=== PATIENT | male | born 1930 | race Two or more races ===

== ENCOUNTER 2017-05-02 21:45 | Inpatient (IN) | payer MEDICAID, MEDICARE ==
[~2017-05-02] VITALS: Ht 160 cm; Wt 82.6 kg
--- NOTE | 2017-05-02 22:03 | NUR ---
BIB BY PARAMEDICS FROM HOME, S/P SEIZURE ACTIVITY FOR 15MIN, NOW IN POSTICTAL STATE, RESPONDS TO PAIN STIMULI ONLY, SB, SR, ON THE MONITOR, ON 3L 02 SAT WELL, BP STABLE, NO PAIN, LAC #20, BLOOD DRAWN, AWATING FOR MD TO SEE THE PT.
--- NOTE | 2017-05-02 22:19 | NUR ---
PT BACK FROM CT SCAN.
--- NOTE | 2017-05-02 22:20 | NUR ---
LAB AT THE BEDSIDE FOR BLD CXR DRAW.
--- NOTE | 2017-05-02 22:25 | NUR ---
PT NOTED WITH SEIZURE LASTING [address] GIBSON MADE AWARE. PT PLACED ON NON REBREATHER MASK PER
[2017-05-02 22:32] LABS: BASOPHILS % (AUTO) 0.4 % (0.0-2.0); EOSINOPHILS # (AUTO) 0.1 /CMM (0.0-0.7); EOSINOPHILS % (AUTO) 1.1 % (0.0-6.0); HEMATOCRIT 39 % (39-51); LYMPHOCYTES # (AUTO) 1.7 /CMM (0.8-4.8); LYMPHOCYTES % (AUTO) 30.1 % (20.0-44.0); MEAN CORPUSCULAR HEMOGLOBIN 32 PG (26.0-33.0); MEAN CORPUSCULAR HGB CONC 33 g/dl (31.0-36.0); MEAN CORPUSCULAR VOLUME 97 fL (80-96); MONOCYTES # (AUTO) 0.6 /CMM (0.1-1.30); MONOCYTES % (AUTO) 10.6 % (2.0-12.0); NEUTROPHILS # (AUTO) 3.3 /CMM (1.8-8.9); NEUTROPHILS % (AUTO) 57.8 % (43.0-81.0); PLATELET COUNT (AUTO) 138 /CMM (150-450); RDW COEFFICIENT OF VARIATION 13.6 (11.5-15.0); RED BLOOD CELL COUNT(AUTO) 4.04 MIL/uL (4.5-6.0); WHITE BLOOD COUNT (AUTO) 5.8 K/uL (4.3-11.0)
[2017-05-02 22:41] LABS: CALCIUM, SERUM 8.4 mg/dL (8.5-10.1); CARBON DIOXIDE 27 mmol/L (21-32); CHLORIDE 107 mmol/L (98-107); CREATININE 1.2 mg/dL (0.6-1.3); GLUCOSE 141 mg/dL (74-106); POTASSIUM 3.8 mmol/L (3.5-5.1); SODIUM SERUM 144 mmol/L (136-145); UREA NITROGEN, BLOOD 13 mg/dL (7-18)
[2017-05-02 22:45] LABS: INR 1.07 (0.87-1.13); PROTHROMBIN TIME 11.5 SECS (9.5-12.7)
[2017-05-02 22:47] LABS: ALANINE AMINOTRANSFERASE 15 U/L (12-78); ALBUMIN 3.2 g/dL (3.4-5.0); ALCOHOL, BLOOD < 3 mg/dL (0-0); ALKALINE PHOSPHATASE 129 U/L (46-116); ASPARTATE AMINOTRANSFERASE 14 U/L (15-37); BILIRUBIN,DIRECT 0.2 mg/dL (0.0-0.2); BILIRUBIN,TOTAL 0.6 mg/dL (0.2-1.0); TOTAL PROTEIN, SERUM 6.7 g/dL (6.4-8.2)
--- NOTE | 2017-05-02 23:04 | NUR ---
PT ASSIGNED TO [facility] 327-2
[2017-05-02 23:22] LABS: APPEARANCE,URINE CLEAR (CLEAR); BILIRUBIN,URINE NEGATIVE (NEGATIVE); BLOOD, URINE NEGATIVE Ery/uL (NEGATIVE); COLOR,URINE YELLOW (YELLOW); KETONES,URINE NEGATIVE (NEGATIVE); LEUKOCYTE ESTERASE ,URINE NEGATIVE (NEGATIVE); NITRITE, URINE NEGATIVE (NEGATIVE); PH,URINE 7.5 (5.0-8.0); PROTEIN,URINE NEGATIVE (NEGATIVE); UGLUCOSE NEGATIVE (NEGATIVE)
[2017-05-02] MEDS ORDERED: LEVETIRACETAM (500MG) 250 MG in IV NS 0.9% 100 ML IV SCH (23:30)
[2017-05-02 23:40] LABS: RBC,URINE NONE SEEN /HPF (0-2)
[2017-05-02 23:41] LABS: BACTERIA,URINE None seen /HPF (None Seen); SQUAMOUS EPITHELIAL CELL,UR Rare /HPF (None Seen); WBC,URINE 0-1 /HPF (0-3)
[2017-05-02] MEDS ORDERED: LEVETIRACETAM (500MG) 500 MG/5 ML VIAL IV ONE (23:42)
[2017-05-02] MEDS ORDERED: ISOS30TA6 PO (23:56)
[2017-05-02] MEDS ORDERED: ASPI-991 PO (23:56)
[2017-05-02] MEDS ORDERED: SILO8CAP PO (23:56)
[2017-05-02] MEDS ORDERED: ATOR20TA PO (23:56)
[2017-05-02] MEDS ORDERED: RANO10003 PO (23:56)
[2017-05-02] MEDS ORDERED: MEMA14CA PO (23:56)
[2017-05-02] MEDS ORDERED: NITR0.4T SL (23:56)
[2017-05-02] MEDS ORDERED: FAMO20TA8 PO (23:56)
[2017-05-02] MEDS ORDERED: CLOP75TA2 PO (23:56)
[2017-05-02] MEDS ORDERED: BENA20TA2 PO (23:56)
--- NOTE | 2017-05-03 00:12 | NUR ---
PT IS TRANSFERRING TO [facility] BED 327-2, REPORT GIVEN TO DAVID.
[2017-05-03 00:19] VITALS: BP 152/70
[2017-05-03] MEDS ORDERED: IV NS 0.9% 1,000 ML IV PRN ×2 (00:19→01:00)
[2017-05-03] MEDS ORDERED: LORAZEPAM INJ 2 MG/ML VIAL IV PRN (00:30)
[2017-05-03] MEDS ORDERED: MAGNESIUM HYDROXIDE 30 ML UDC PO PRN (00:30)
[2017-05-03] MEDS ORDERED: NITROGLYCERIN 0.4 MG/TAB BOTTLE SL PRN (00:30)
[2017-05-03] MEDS ORDERED: ONDANSETRON HCL/PF 4 MG/2 ML VIAL IVP PRN (00:30)
[2017-05-03] MEDS ORDERED: HYDROCODONE/APAP 5/325MG 1 EACH TABLET PO PRN (00:30)
[2017-05-03] MEDS ORDERED: MAG HYDROX/AL HYDROX/SIMETH 30 ML UDC PO PRN (00:30)
[2017-05-03] MEDS ORDERED: LEVETIRACETAM (500MG) 500 MG in IV NS 0.9% 100 ML IV SCH (00:30)
[2017-05-03] MEDS ORDERED: ACETAMINOPHEN 325 MG TABLET PO PRN (00:30)
[2017-05-03] MEDS ORDERED: Z GUARD REMEDY 2 OZ OINT TP PRN (00:30)
--- NOTE | 2017-05-03 00:30 | NUR ---
RETREAD SUPERVISOR NOTES PLACED A CALL TO M.Dany PRECISION THREAD GRINDER OPERATOR FOR THIS PT SPOKE TO SHANTE MARRERO RELAYED PT'S LACTIC ACID RESULTS OF 2.6 PER DOCTOR SHE IS ALREADY AWARE OF IT AND SHE ORDERED ALREADY WHAT IS NECESSARY TO THE PATIENT ACCORDING TO HER PATIENT IS NOT SEPTIC AT THIS TIME. NO NEED FOR SEPSIS ASSESSMENT
[2017-05-03] MEDS: IV NS 0.9% 1,000 ML IV PRN ×2 (01:22→09:21)
--- NOTE | 2017-05-03 02:54 | NUR ---
RN OPENING TELE NOTES RECEIVED PT VIA KULDEEP FROM [place] AT 0019 VIA ACLS PROTOCOL HEAD TO TOE ASSESSMENT IS DONE, A/O X 1, PT PUT ON NC 2LPM VIA NC 02 SAT AT 98%, PATIENT NOT IN ACUTE DISTRESS AT THIS TIME, IV SITE IN LAC #20 INTACT NO S/S OF INFILTRATION. CALL LIGHT WITHIN REACH. SAFETY MEASURES IN PLACE, ON LOW BED, WILL CONTINUE TO MONITOR PT.
--- NOTE | 2017-05-03 03:35 | NUR ---
FIRM ADMINISTRATOR NOTES PATIENTS LACTIC ACID IS NOW 1.3
[2017-05-03 04:00] VITALS: BP 150/70
[2017-05-03 04:38] VITALS: BP 150/70
--- NOTE | 2017-05-03 05:10 | NUR ---
SHEET ROCK SANDER NOTES NS IV FLUIDS 1000 L WAS GIVEN BOLUS X 1 ONLY PER M.D ORDER CLARIFIED NOTED AND CARRIED OUT
--- NOTE | 2017-05-03 06:37 | NUR ---
MS RN CLOSING NOTES PATIENT COMFORTABLY ASLEEP AND EASILY AWAKEN, A/O X 1, HEAD OF BED ELEVATED FOR BETTER LUNG EXPANSION.2LPM NC 02 SAT 98% IV FLUIDS NS RUNNING AT 150 CC/HR TOLERATED WELL. IV SITE NO S/S OF INFILTRATED PATENT AND FLUSHED, NOT IN ACUTE DISTRESS. RESPIRATIONS EVEN AND UNLABORED, FREQUENT VISUAL CHECK DONE FOR SAFETY EVERY 2 HOURS. NURSING CARE RENDERED, NEEDS ATTENDED AND ANTICIPATED, NO SEIZURE NOTED, KEPT CLEAN AND DRY AND COMFORTABLE, GOOD SKIN CARE PROVIDED. OFFLOAD AT ALL TIMES. SAFE HAZARD FREE ENVIRONMENT PROVIDED. CALL LIGHT WITHIN EASY TO REACH, ON LOW BED AT ALL TIMES TO ENSURE SAFETY, WILL ENDORSE TO THE NEXT SHIFT CONTINUE PLAN OF CARE. ASSITED REPOSITION PATIENT EVERY 2 HOURS FOR SKIN MGT.
[2017-05-03 06:55] VITALS: BP 148/70
[2017-05-03] MEDS ORDERED: PANTOPRAZOLE 40 MG TABLET.DR PO SCH (07:30)
--- NOTE | 2017-05-03 07:53 | NUR ---
RN NOTES PATIENT RECEIVED LYING DOWN ,ASLEEP, HOB ELEVATED, NO SOB OR DISTRESS NOTED. PATIENT ON O2 VIA NC AT 2 LPM AND TOLERATED WELL. ON TELE MONITOR SB 51 PT. A/O X 1. IV INTACT AND PATENT. KEPT PATIENT CLEAN AND COMFORTABLE IN BED, CALL LIGHT WITHIN PATIENT REACH. WILL CONTINUE TO MONITOR TO ACCORDINGLY.
[2017-05-03] MEDS: ISOSORBIDE MONONITRATE (30MG) 30 MG TAB.SR.24H PO SCH (09:18)
[2017-05-03] MEDS: ASPIRIN EC 81 MG TABLET.DR PO SCH (09:18)
[2017-05-03] MEDS: CLOPIDOGREL BISULFATE 75 MG TABLET PO SCH (09:19)
[2017-05-03] MEDS: FAMOTIDINE (20 MG) 20 MG TABLET PO SCH (09:19)
[2017-05-03] MEDS: ATORVASTATIN 10 MG TABLET PO SCH (09:19)
[2017-05-03] MEDS: BENAZEPRIL HCL 20 MG TABLET PO SCH ×2 (09:19→16:37)
[2017-05-03] MEDS: LEVETIRACETAM (500MG) 500 MG in IV NS 0.9% 100 ML IV SCH ×2 (09:20→20:50)
[2017-05-03 09:34] LABS: MAGNESIUM 1.8 mg/dL (1.8-2.4); PHOSPHORUS 2.8 mg/dL (2.5-4.9)
[2017-05-03 09:58] LABS: BASOPHILS % (AUTO) 0.3 % (0.0-2.0); EOSINOPHILS % (AUTO) 0.7 % (0.0-6.0); HEMATOCRIT 37 % (39-51); HEMOGLOBIN 12.4 g/dL (13.5-17.5); LYMPHOCYTES # (AUTO) 1.5 /CMM (0.8-4.8); LYMPHOCYTES % (AUTO) 23.4 % (20.0-44.0); MEAN CORPUSCULAR HEMOGLOBIN 32 PG (26.0-33.0); MEAN CORPUSCULAR HGB CONC 33 g/dl (31.0-36.0); MEAN CORPUSCULAR VOLUME 98 fL (80-96); MONOCYTES # (AUTO) 0.6 /CMM (0.1-1.30); NEUTROPHILS # (AUTO) 4.1 /CMM (1.8-8.9); NEUTROPHILS % (AUTO) 65.6 % (43.0-81.0); PLATELET COUNT (AUTO) 132 /CMM (150-450); RDW COEFFICIENT OF VARIATION 13.6 (11.5-15.0); RED BLOOD CELL COUNT(AUTO) 3.82 MIL/uL (4.5-6.0); WHITE BLOOD COUNT (AUTO) 6.3 K/uL (4.3-11.0)
[2017-05-03 10:02] LABS: CALCIUM, SERUM 7.9 mg/dL (8.5-10.1); CARBON DIOXIDE 25 mmol/L (21-32); CHLORIDE 111 mmol/L (98-107); CREATININE 0.9 mg/dL (0.6-1.3); GLUCOSE 85 mg/dL (74-106); POTASSIUM 3.8 mmol/L (3.5-5.1); SODIUM SERUM 146 mmol/L (136-145); UREA NITROGEN, BLOOD 13 mg/dL (7-18)
[2017-05-03 10:23] LABS: THYROID STIMULATING HORMONE 0.704 uIU/mL (0.358-3.74)
--- NOTE | 2017-05-03 12:20 | NUR ---
RN NOTES FAMILY BROUGHT HOME MEDICATIONS RANEXA AND NAMENDA.
--- NOTE | 2017-05-03 12:52 | NUR ---
WOUND CARE CONSULT: PT NOTED TO HAVE UNEVEN SKIN PIGMENTATION. SKIN IS INTACT. PT ABLE TO ASSIST WITH TURNING AND REPOSITIONING IN BED. ALL SKIN PROTECTION MEASURES IN PLACE AND DISCUSSED WITH NURSING STAFF. JHONY SCORE CURRENTLY 13. PT ON COMFORT GEL MATTRESS. WILL SEE PRN. SÁNCHEZ IN AGREEMENT WITH PLAN OF CARE.
--- NOTE | 2017-05-03 15:25 | NUR ---
RN NOTES PATIENT IS LYING DOWN WITH NO SOB OR DISTRESS NOTED.
[2017-05-03] MEDS: IV 1/2NS 1000 ML 1,000 ML IV PRN (15:27)
[2017-05-03] MEDS: HOME MED - RANEXA 1000MG PO SCH (16:37)
--- NOTE | 2017-05-03 18:11 | NUR ---
Spoke with Madelyn @ [facility]- [phone], patient is accepted and bed is available. Addendum: 05/03/17 at 1811 by PHILIP IRWIN RN Amended: Links added.
--- NOTE | 2017-05-03 18:42 | NUR ---
RN NOTES ALL NEEDS PROVIDED, ATTENDED, AND ANTICIPATED. KEPT PATIENT CLEAN AND COMFORTABLE IN BED. CALL LIGHT WITHIN PATIENT REACH, WILL CONTINUE TO MONITOR ACCORDINGLY. ENDORSED TO NEXT SHIFT RN TO CONTINUE CARE.
[2017-05-03 20:00] VITALS: BP 98/43
--- NOTE | 2017-05-03 20:00 | NUR ---
RN NOTES RECEIVED PATIENT IN BED, ALERT AND ORIENTED X1, CONFUSED, UNABLE TO ENGAGE IN MEANINGFUL CONVERSATION, HX OF DEMENTIA, NO SOB, NO RESPIRATORY DISTRESS, 2 LPM VIA NC, SPO2 95%, NOT IN APPARENT PAIN, LEFT AC PERIPHERAL LINE IS PATENT AND INFUSING WELL, ON SEIZURE PRECAUTION, REPOSITIONED FOR COMFORT, CALL LIGHT WITHIN REACH.
[2017-05-04] MEDS: IV 1/2NS 1000 ML 1,000 ML IV PRN (03:23)
--- NOTE | 2017-05-04 06:43 | NUR ---
RN NOTES PATIENT ASLEEP, EASILY AROUSEABLE BY VOICE AND TOUCH, NO DISTRESS, NO SOB, TOLERATING 2LPM VIA NC, NO COMPLAIN OF PAIN, NO RESTLESSNESS, NO FACIAL GRIMACING, NO SEIZURE NOTED DURING SHIFT, NEEDS ATTENDED, CALL LIGHT WITHIN REACH
--- NOTE | 2017-05-04 07:38 | NUR ---
RN NOTES PATIENT RECEIVED LYING DOWN ,ASLEEP, HOB ELEVATED, NO SOB OR DISTRESS NOTED. PATIENT ON O2 VIA NC AT 2 LPM AND TOLERATED WELL. PT. A/O X 1. IV INTACT AND PATENT. KEPT PATIENT CLEAN AND COMFORTABLE IN BED, CALL LIGHT WITHIN PATIENT REACH. WILL CONTINUE TO MONITOR TO ACCORDINGLY.
[2017-05-04 07:45] LABS: EOSINOPHILS # (AUTO) 0.1 /CMM (0.0-0.7); EOSINOPHILS % (AUTO) 0.9 % (0.0-6.0); HEMATOCRIT 35 % (39-51); HEMOGLOBIN 11.9 g/dL (13.5-17.5); LYMPHOCYTES # (AUTO) 1.2 /CMM (0.8-4.8); LYMPHOCYTES % (AUTO) 12.1 % (20.0-44.0); MEAN CORPUSCULAR HEMOGLOBIN 33 PG (26.0-33.0); MEAN CORPUSCULAR HGB CONC 34 g/dl (31.0-36.0); MEAN CORPUSCULAR VOLUME 98 fL (80-96); MONOCYTES # (AUTO) 0.6 /CMM (0.1-1.30); MONOCYTES % (AUTO) 6.2 % (2.0-12.0); NEUTROPHILS # (AUTO) 7.8 /CMM (1.8-8.9); NEUTROPHILS % (AUTO) 80.8 % (43.0-81.0); PLATELET COUNT (AUTO) 128 /CMM (150-450); RDW COEFFICIENT OF VARIATION 13.7 (11.5-15.0); RED BLOOD CELL COUNT(AUTO) 3.62 MIL/uL (4.5-6.0); WHITE BLOOD COUNT (AUTO) 9.7 K/uL (4.3-11.0)
[2017-05-04 07:58] LABS: CHOLESTEROL 105 mg/dL (<200); HDL CHOLESTEROL 30 mg/dL (40-60); LDL 49 mg/dL (0-99); TRIGLYCERIDES 140 mg/dL (30-150)
[2017-05-04 08:00] VITALS: BP 129/98
[2017-05-04 08:10] LABS: CALCIUM, SERUM 7.9 mg/dL (8.5-10.1); CARBON DIOXIDE 27 mmol/L (21-32); CHLORIDE 110 mmol/L (98-107); CREATININE 0.9 mg/dL (0.6-1.3); GLUCOSE 93 mg/dL (74-106); MAGNESIUM 1.6 mg/dL (1.8-2.4); PHOSPHORUS 3.6 mg/dL (2.5-4.9); POTASSIUM 4.2 mmol/L (3.5-5.1); SODIUM SERUM 145 mmol/L (136-145); UREA NITROGEN, BLOOD 11 mg/dL (7-18)
[2017-05-04] MEDS: HOME MED - RANEXA 1000MG PO SCH ×2 (09:04→16:35)
[2017-05-04] MEDS: LEVETIRACETAM (500MG) 500 MG in IV NS 0.9% 100 ML IV SCH ×2 (09:04→20:32)
[2017-05-04] MEDS: FAMOTIDINE (20 MG) 20 MG TABLET PO SCH (09:05)
[2017-05-04] MEDS: MEMANTINE 14 MG PO SCH (09:05)
[2017-05-04] MEDS: ASPIRIN EC 81 MG TABLET.DR PO SCH (09:06)
[2017-05-04] MEDS: BENAZEPRIL HCL 20 MG TABLET PO SCH ×2 (09:06→16:35)
[2017-05-04] MEDS: ATORVASTATIN 10 MG TABLET PO SCH (09:06)
[2017-05-04] MEDS: ISOSORBIDE MONONITRATE (30MG) 30 MG TAB.SR.24H PO SCH (09:06)
[2017-05-04] MEDS: CLOPIDOGREL BISULFATE 75 MG TABLET PO SCH (09:06)
[2017-05-04] MEDS: Magnesium 1GM/D5W 100ML PREMIX 100 ML IV SCH ×2 (10:00→11:14)
[2017-05-04 16:00] VITALS: BP 140/62
--- NOTE | 2017-05-04 19:30 | NUR ---
MS RN INITIAL NOTE RECEIVED PT AWAKE AND ALERT, ORIENTED X1, BENINESE SPEAKING, CONFUSED AND ATTEMPTING TO GET OFF HIS BED, WILL KEEP CLOSE MONITORING FOR SAFETY, NO SIGNS OF PAIN OR RESPIRATORY DISTRESS NOTED DURING PHYSICAL ASSESSMENT, SAFETY MEASURES WILL BE MAINTAINED AT ALL TIMES, NEEDS WILL BE ANTICIPATED AND ATTENDED TO PROMPTLY.
[2017-05-04 20:00] VITALS: BP 133/67
--- NOTE | 2017-05-04 20:30 | NUR ---
PER PHONE CONVERSATION WITH DR FREY,IT IS OK TO GIVE ATIVAN 1MG IV FOR AGITATION WELL, WILL CARRYOUT ORDER AND CONTINUE TO MONITOR CLOSELY.
[2017-05-05] MEDS: IV 1/2NS 1000 ML 1,000 ML IV PRN (04:52)
--- NOTE | 2017-05-05 06:23 | NUR ---
MS RN CLOSING NOTE PT REMAINED STABLE DURING NEON TUBE PUMPER, NO CHANGE OF CONDITION NOTED, WILL ENDORSE TO INCOMING NURSE FOR ZITA.
--- NOTE | 2017-05-05 07:25 | NUR ---
RN NOTES RECEIVED PATIENT ASLEEP, AROUSES EASILY. ALERT AND ORIENTED X1, SAMOAN SPEAKING, CONFUSED. SITTER ON BEDSIDE FOR SAFETY. NO ACUTE DISTRESS, NO SOB NOTED. IV SITE INTACT AND PATENT. SAFETY MEASURES WILL BE MAINTAINED AT ALL TIMES, NEEDS WILL BE ANTICIPATED AND ATTENDED TO PROMPTLY. BED IN LOW POSITION, LOCKED, CALL LIGHT IN REACH. WILL CONTINUE TO MONITOR ACCORDINGLY.
[2017-05-05 08:00] VITALS: BP_SYST 124; BP_SYST 129; BP_DIAS 56; BP_DIAS 59
[2017-05-05 08:08] LABS: CALCIUM, SERUM 7.5 mg/dL (8.5-10.1); CARBON DIOXIDE 26 mmol/L (21-32); CHLORIDE 106 mmol/L (98-107); CREATININE 0.9 mg/dL (0.6-1.3); GLUCOSE 97 mg/dL (74-106); MAGNESIUM 1.8 mg/dL (1.8-2.4); POTASSIUM 3.6 mmol/L (3.5-5.1); SODIUM SERUM 141 mmol/L (136-145); UREA NITROGEN, BLOOD 10 mg/dL (7-18)
[2017-05-05] MEDS: LEVETIRACETAM (500MG) 500 MG in IV NS 0.9% 100 ML IV SCH (09:28)
[2017-05-05] MEDS: FAMOTIDINE (20 MG) 20 MG TABLET PO SCH (09:33)
[2017-05-05] MEDS: ASPIRIN EC 81 MG TABLET.DR PO SCH (09:33)
[2017-05-05] MEDS: CLOPIDOGREL BISULFATE 75 MG TABLET PO SCH (09:33)
[2017-05-05] MEDS: BENAZEPRIL HCL 20 MG TABLET PO SCH ×2 (09:37→17:00)
[2017-05-05] MEDS: ISOSORBIDE MONONITRATE (30MG) 30 MG TAB.SR.24H PO SCH (09:37)
[2017-05-05] MEDS: HOME MED - RANEXA 1000MG PO SCH ×2 (09:56→17:17)
[2017-05-05] MEDS: MEMANTINE 14 MG PO SCH (09:56)
[2017-05-05 16:00] VITALS: BP 139/59
[2017-05-05] MEDS ORDERED: LEVE250T2 PO (16:34)
[2017-05-05 17:00] VITALS: BP 89/44
--- NOTE | 2017-05-05 17:00 | NUR ---
RN NOTES PATIENT COMPLAINTS OF CHEST PAIN, BP 115/48. NITRO GIVEN ORDERED. AFTER 5 MINS, PATIENT DENIES PAIN, BP 89/49. SPO2 92-94% ON 4LPM NC. STAT EKG ORDERED. DR GRACY JC AWARE. WILL CONTINUE TO MONITOR ACCORDINGLY.
--- NOTE | 2017-05-05 17:30 | NUR ---
RN NOTES NORMAL EKG RESULT. PATIENT DENIES ANY PAIN OR DISCOMFORT. DR GRACY JC ORDERED TO CONTINUE DISCHARGE. WILL CONTINUE TO MONITOR ACCORDINGLY.
--- NOTE | 2017-05-05 18:20 | NUR ---
RN NOTES DISCHARGE PATIENT IN STABLE CONDITION ACCOMPANIED BY 2 TESTING COORDINATOR, AND FAMILY. DISCHARGE TEACHING/INSTRUCTIONS/EXITCARE DONE. DISCHARGE PAPERWORK GIVEN TO TESTING COORDINATOR. CALLED [facility] AND SPOKE WITH MYRNA LAMB, FOR REPORT.
[2017-05-05] MEDS ORDERED: LEVETIRACETAM (250 MG) 250 MG TABLET PO SCH (21:00)
== END 2017-05-05 18:20 | DRG 53 ==
LOC: ER 21:46 → EDBD 21:46 → TELE 23:16 → MED 05-03 15:03
PROVIDERS: ADMIT Internal Medicine; ATTEND Internal Medicine
DX: G40.409 Other generalized epilepsy and epileptic syndromes, not intractable, without status epilepticus (principal); I21.4 Non-ST elevation (NSTEMI) myocardial infarction; I63.8 Other cerebral infarction; E87.2 Acidosis; I27.2 Other secondary pulmonary hypertension; D69.6 Thrombocytopenia, unspecified; F03.90 Unspecified dementia, unspecified severity, without behavioral disturbance, psychotic disturbance, mood disturbance, and anxiety; Z96.641 Presence of right artificial hip joint; Z95.5 Presence of coronary angioplasty implant and graft; Z87.891 Personal history of nicotine dependence; Z82.49 Family history of ischemic heart disease and other diseases of the circulatory system; N40.0 Benign prostatic hyperplasia without lower urinary tract symptoms; K57.30 Diverticulosis of large intestine without perforation or abscess without bleeding; L80 Vitiligo; K21.9 Gastro-esophageal reflux disease without esophagitis; J43.9 Emphysema, unspecified; J98.11 Atelectasis; J32.9 Chronic sinusitis, unspecified; I70.0 Atherosclerosis of aorta; I25.2 Old myocardial infarction; I25.10 Atherosclerotic heart disease of native coronary artery without angina pectoris; I10 Essential (primary) hypertension; H40.9 Unspecified glaucoma; E78.5 Hyperlipidemia, unspecified; E04.2 Nontoxic multinodular goiter; D64.9 Anemia, unspecified; L53.9 Erythematous condition, unspecified; R73.9 Hyperglycemia, unspecified
CPT/HCPCS: 36415; 70450-TC; 71010-TC; 71250-TC; 80048-TC; 80061-TC; 80076-TC; 80305; 81000-TC; 82962-TC; 83605-TC; 83735-TC; 84100-TC; 84439-TC; 84443-TC; 84484-TC; 85025-TC; 85730-TC; 87040-TC; 92521; 93307-TC; 95819-TC; A4606; G0480; J1953; J2060; J3475; J3490; J7030; Z7610

== ENCOUNTER 2017-10-04 12:43 | Inpatient (IN) | payer MEDICAID, MEDICARE ==
[~2017-10-04] VITALS: Ht 165.1 cm; Wt 67.2 kg
[~2017-10-04 12:43] MED LIST: ASPI-1152 PO; ATOR20TA PO; BENA20TA2 PO; CLOP75TA15 PO; FAMO20TA8 PO; ISOS30TA6 PO; LEVE250T2 PO; MEMA14CA PO; NITR0.4T SL; RANO10003 PO; SILO8CAP PO
--- NOTE | 2017-10-04 12:43 | NUR ---
[id number] FROM SNF: L SIDE CHEST PAIN x 30 MIN ASW SPECIALIST. ASA 162, NITRO 0.8 GIVEN. NAD NOTED. VSS. PT PLACED IN GOWN AND MONITOR. PENDING MD NGUYEN.
[2017-10-04 13:09] LABS: BASOPHILS # (AUTO) 0.1 /CMM (0.0-0.2); BASOPHILS % (AUTO) 0.9 % (0.0-2.0); EOSINOPHILS # (AUTO) 0.3 /CMM (0.0-0.7); EOSINOPHILS % (AUTO) 3.5 % (0.0-6.0); HEMATOCRIT 41 % (39-51); HEMOGLOBIN 13.8 g/dL (13.5-17.5); LYMPHOCYTES # (AUTO) 2.6 /CMM (0.8-4.8); LYMPHOCYTES % (AUTO) 29.4 % (20.0-44.0); MEAN CORPUSCULAR HEMOGLOBIN 30 PG (26.0-33.0); MEAN CORPUSCULAR HGB CONC 34 g/dl (31.0-36.0); MEAN CORPUSCULAR VOLUME 90 fL (80-96); MONOCYTES # (AUTO) 0.5 /CMM (0.1-1.30); NEUTROPHILS # (AUTO) 5.4 /CMM (1.8-8.9); NEUTROPHILS % (AUTO) 60.2 % (43.0-81.0); PLATELET COUNT (AUTO) 324 /CMM (150-450); RDW COEFFICIENT OF VARIATION 13.2 (11.5-15.0); RED BLOOD CELL COUNT(AUTO) 4.54 MIL/uL (4.5-6.0); WHITE BLOOD COUNT (AUTO) 8.9 K/uL (4.3-11.0)
[2017-10-04 13:19] LABS: CALCIUM, SERUM 8.3 mg/dL (8.5-10.1); CARBON DIOXIDE 25 mmol/L (21-32); CHLORIDE 104 mmol/L (98-107); CREATININE 1.1 mg/dL (0.6-1.3); GLUCOSE 103 mg/dL (74-106); POTASSIUM 4.3 mmol/L (3.5-5.1); SODIUM SERUM 137 mmol/L (136-145); UREA NITROGEN, BLOOD 19 mg/dL (7-18)
[2017-10-04 13:21] LABS: INR 1.05 (0.85-1.15)
[2017-10-04 13:25] LABS: ALANINE AMINOTRANSFERASE 22 U/L (12-78); ALBUMIN 3.1 g/dL (3.4-5.0); ALKALINE PHOSPHATASE 138 U/L (46-116); ASPARTATE AMINOTRANSFERASE 21 U/L (15-37); BILIRUBIN,DIRECT 0.1 mg/dL (0.0-0.2); BILIRUBIN,TOTAL 0.4 mg/dL (0.2-1.0); TOTAL PROTEIN, SERUM 7.8 g/dL (6.4-8.2)
--- NOTE | 2017-10-04 13:52 | NUR ---
PANEL ON-CALL PAGED
[2017-10-04] MEDS ORDERED: CALC-261 PO (14:28)
[2017-10-04] MEDS ORDERED: TAMS-12 PO (14:28)
[2017-10-04] MEDS ORDERED: ACID1TAB12 PO (14:28)
[2017-10-04] MEDS ORDERED: MULT-659 PO (14:28)
[2017-10-04] MEDS ORDERED: AMIN30LI4 PO (14:28)
[2017-10-04] MEDS ORDERED: MAGN400O6 PO (14:28)
[2017-10-04] MEDS ORDERED: DOCU-141 PO (14:28)
[2017-10-04] MEDS ORDERED: ASPI-1169 PO (14:28)
[2017-10-04] MEDS ORDERED: MEMA5TAB PO (14:28)
[2017-10-04] MEDS ORDERED: LEVE250T2 PO (14:28)
[2017-10-04] MEDS ORDERED: ACET-868 PO (14:28)
--- NOTE | 2017-10-04 14:53 | NUR ---
REPORT GIVEN TO KIM NORRIS FOR ZITA
[2017-10-04 15:00] VITALS: BP 138/72
[2017-10-04 15:22] VITALS: BP 138/72
--- NOTE | 2017-10-04 15:30 | NUR ---
ADMISSION NOTES PATIENT ADMITTED FROM ER 87 Y/OLD MALE [place] SPEAKER, ON DX OF CHEST PAIN. PATIENT A/O X2/3 ON TELE. TELE MONITOR ON SB-52, V/S TAKEN BP-138/72, P-58, R-18, O2-96 ROOM AIR, T-97.7, PATIENT REFUSED PAIN AT THIS TIME, LUNGS ARE CLEAR DURING AUSCULTATE, COUGHING. SKIN ASSESSMENT DONE PICTURE TAKEN REDNESS MID UPPER BACK.IV ACCESS ON RIGHT FOREARM 18G, AND LEFT AC#18 INTACT. PATIENT TURN AND REPOSITION SELF IN THE BED. PATIENT INCONTINENT USING DIAPER. CLYDE LIGHT WITHIN TO REACH, SAFETY PRECAUTION MAINTAINED ALL THE TIME. STEPHANIE RETAIL SHIFT MANAGER AWARE OF NEW PATIENT, AND MEDICATION. CONTINUED MONITORING.
[2017-10-04] MEDS ORDERED: ONDANSETRON HCL/PF 4 MG/2 ML VIAL IVP PRN (16:30)
[2017-10-04] MEDS ORDERED: Z GUARD REMEDY 2 OZ OINT TP PRN (16:30)
[2017-10-04] MEDS ORDERED: ACETAMINOPHEN 325 MG TABLET PO PRN (16:30)
[2017-10-04] MEDS ORDERED: HYDROCODONE/APAP 5/325MG 1 EACH TABLET PO PRN (16:30)
[2017-10-04] MEDS ORDERED: DOCUSATE SODIUM 100 MG CAPSULE PO PRN (17:00)
--- NOTE | 2017-10-04 17:00 | NUR ---
RN NOTES PATIENT IN THE BED, NO ACUTE DISTRESS, NPO AT THIS TIME EXCEPT MEDS, SCHEDULED MEDICATION ADMINISTERED, V/S STABLE, PATIENT TURN AND REPOSITION SELF IN THE BED, NEEDS ATTENDED AND ANTICIPATED, CALL LIGHT WITHIN TO REACH, SAFETY PRECAUTION MAINTAINED ALL THE TIME.
[2017-10-04] MEDS: MEMANTINE HCL 5 MG TABLET PO SCH (18:16)
[2017-10-04] MEDS: BENAZEPRIL HCL 20 MG TABLET PO SCH (18:16)
--- NOTE | 2017-10-04 18:40 | NUR ---
RN NOTES CT OF ABDOMEN WITHOUT CONTRAST DONE. PATIENT BACK TO THE BED, NO ACUTE RESPIRATORY DISTRESS, NO C/O MERI AT THIS TIME. CALL LIGHT WITHIN TO REACH. ENDORSED ONCOMING NURSE FOR ZITA.
--- NOTE | 2017-10-04 19:30 | NUR ---
RN NOTES: RECEIVED LYING COMFORTABLY IN BED, PLEASANT MOOD, A/OX1,KOSOV[place] SPEAKING ONLY,NO SIGN OF SOB UPON ENDORSEMENT, FALL,SAFETY AND ASPIRATION PRECAUTION OBSERVE, CALL LIGHT WITHIN EASY REACH, ABLE TO MAKE NEEDS KNOWN.KEPT ON CLOSE VISUAL CHECK.
--- NOTE | 2017-10-04 19:55 | NUR ---
RN NOTES: ON NPO, TELE MONITOR SR-55,NO COMPLAINTS OF CHEST PAIN OR DISCOMFORT,AWAITING FOR CT ABDOMEN RESULT, CONTINUE TO MONITOR SPO2-95%.
[2017-10-04 20:00] VITALS: BP 128/72
[2017-10-04 20:11] VITALS: BP 128/72
[2017-10-04] MEDS: LEVETIRACETAM (250 MG) 250 MG TABLET PO SCH (20:36)
[2017-10-04] MEDS: ATORVASTATIN 10 MG TABLET PO SCH (21:18)
[2017-10-04] MEDS: TAMSULOSIN 0.4 MG CAP.SR.24H PO SCH (21:18)
[2017-10-05] VITALS: BP 118/69
--- NOTE | 2017-10-05 | NUR ---
RN NOTES: HAND INSPECTOR NOTIFIED RN PATIENT REFUSED FOR BLOOD TEST, THEY WILL RETURN BACK AGAIN LATER.
--- NOTE | 2017-10-05 00:07 | NUR ---
RN NOTES: SLEEPING COMFORTABLY UPON V/S CHECKED NOTED SPO2-91% STARTED ON O2 AT 2L/MIN VIA NC PRN, SPO2=92%, NO SIGN OF ANY RESPIRATORY DISCOMFORT.
--- NOTE | 2017-10-05 03:00 | NUR ---
RN NOTES: CT ABDOMEN WITHOUT CONTRAST RESULT IN, NOTIFY CN, WILL RELAY RESULT TO PMD IN THE MORNING.
[2017-10-05 04:00] VITALS: BP_SYST 118; BP_SYST 130; BP_DIAS 69; BP_DIAS 72
--- NOTE | 2017-10-05 06:52 | NUR ---
RN NOTES: ASLEEP AT SHORT INTERVALS,REMIND DINKEY SKINNER TO FOLLOW UP TROPONIN TEST,MORNING CARE DONE,ENDORSED FOR CONTINUITY OF CARE.
[2017-10-05 07:18] LABS: BASOPHILS % (AUTO) 0.5 % (0.0-2.0); EOSINOPHILS # (AUTO) 0.3 /CMM (0.0-0.7); EOSINOPHILS % (AUTO) 3.7 % (0.0-6.0); HEMATOCRIT 40 % (39-51); HEMOGLOBIN 13.8 g/dL (13.5-17.5); LYMPHOCYTES # (AUTO) 2.1 /CMM (0.8-4.8); LYMPHOCYTES % (AUTO) 29.1 % (20.0-44.0); MEAN CORPUSCULAR HEMOGLOBIN 32 PG (26.0-33.0); MEAN CORPUSCULAR HGB CONC 35 g/dl (31.0-36.0); MEAN CORPUSCULAR VOLUME 91 fL (80-96); MONOCYTES # (AUTO) 0.4 /CMM (0.1-1.30); MONOCYTES % (AUTO) 6.2 % (2.0-12.0); NEUTROPHILS # (AUTO) 4.3 /CMM (1.8-8.9); NEUTROPHILS % (AUTO) 60.5 % (43.0-81.0); PLATELET COUNT (AUTO) 291 /CMM (150-450); RDW COEFFICIENT OF VARIATION 14.2 (11.5-15.0); RED BLOOD CELL COUNT(AUTO) 4.37 MIL/uL (4.5-6.0); WHITE BLOOD COUNT (AUTO) 7.1 K/uL (4.3-11.0)
--- NOTE | 2017-10-05 07:30 | NUR ---
RN OPENING NOTES RECEIVED PATIENT IN BED ALERT ORIENTED . DENIED ANY PAIN .NO SOB NOTED. NO ACUTE DISTRESS NOTED. BREATHING UNLABORED. IV ACCESS PATENT AND INTACT. NO REDNESS OR SWELLING NOTED. SAFETY MEASURES IN PLACE. CALL LIGHT WITHIN REACH. WILL CONTINUE TO MONITOR ACCORDINGLY.
[2017-10-05 07:40] LABS: CALCIUM, SERUM 8.4 mg/dL (8.5-10.1); CARBON DIOXIDE 25 mmol/L (21-32); CHLORIDE 106 mmol/L (98-107); CREATININE 1.1 mg/dL (0.6-1.3); GLUCOSE 96 mg/dL (74-106); MAGNESIUM 2.2 mg/dL (1.8-2.4); PHOSPHORUS 3.1 mg/dL (2.5-4.9); POTASSIUM 4.3 mmol/L (3.5-5.1); SODIUM SERUM 140 mmol/L (136-145); UREA NITROGEN, BLOOD 20 mg/dL (7-18)
[2017-10-05 08:00] VITALS: BP 125/70
[2017-10-05] MEDS: PROSOURCE / PROSTAT (PYXIS) 30 ML UDC PO SCH (09:00)
[2017-10-05] MEDS: CALCIUM CARB 250MG /VITAMIN D 1 UDTAB PO SCH (09:00)
[2017-10-05] MEDS: ACIDOPHILUS/BULGARICUS 1 EACH TAB.CHEW PO SCH (09:00)
[2017-10-05] MEDS: ISOSORBIDE MONONITRATE (30MG) 30 MG TAB.SR.24H PO SCH (09:00)
[2017-10-05] MEDS: FAMOTIDINE (20 MG) 20 MG TABLET PO SCH (09:00)
[2017-10-05] MEDS: MEMANTINE HCL 5 MG TABLET PO SCH ×2 (09:00→17:27)
[2017-10-05] MEDS: LEVETIRACETAM (250 MG) 250 MG TABLET PO SCH ×2 (09:00→21:06)
[2017-10-05] MEDS: MULTIVIT, IRON, MIN NO. 8, FA 1 TAB PO SCH (09:00)
[2017-10-05] MEDS: BENAZEPRIL HCL 20 MG TABLET PO SCH ×2 (09:00→17:28)
[2017-10-05] MEDS: CLOPIDOGREL BISULFATE 75 MG TABLET PO SCH (09:00)
[2017-10-05] MEDS: ASPIRIN 81 MG TAB.CHEW PO SCH (09:00)
--- NOTE | 2017-10-05 09:30 | NUR ---
RN NOTES SEEN AND EVALUATED BY DR CENTENO WITH NEW ORDERS MADE. NOTED AND CARRIED OUT.
[2017-10-05] MEDS: IV NS 0.9% 1,000 ML IV PRN ×2 (09:41→18:00)
--- NOTE | 2017-10-05 13:00 | NUR ---
RN NOTES SEEN AND EVALUATED BY JOSE VALIENTE WITH NEW ORDERS MADE. NOTED AND CARRIED OUT.
[2017-10-05 16:00] VITALS: BP 119/54
[2017-10-05] MEDS: METOCLOPRAMIDE HCL 10 MG/2 ML VIAL IV SCH (17:26)
--- NOTE | 2017-10-05 18:00 | NUR ---
RN CLOSING NOTES PATIENT IN BED AWAKE, VERBALLY RESPONSIVE. HOB ELEVATED. NO SOB NOTED. NO ACUTE DISTRESS NOTED. DENIED ANY PAIN. BREATHING UNLABORED. IV ACCESS PATENT AND INTACT, NO REDNESS OR SWELLING NOTED. NO S/SX OF INFILTRATION NOTED. DUE MEDICATIONS GIVEN, NO ASE NOTED. NEEDS ATTENDED AND ANTICIPATED. SAFETY MEASURES IN PLACE. CALL LIGHT WITHIN REACH. WILL CONTINUE TO MONITOR ACCORDINGLY. WILL ENDORSE TO [employer]ARE SYSTEMS OPERATOR FOR CONTINUITY OF CARE.
--- NOTE | 2017-10-05 19:20 | NUR ---
ms/rn opening notes Received report from am rn for sharad. patient is alert, oriented x2 , can verbalize needs.[place] speaking, ,on med surg, incontinent, require assistance and frequent rounds, will continue care, RH IV site 20 gauge w/ no s/s of infiltration. LAC iv on 18 gauge running at 125ml/hr, bed in lock position, observe no grimace and guarding, will continue to monitor, on room air.
[2017-10-05 20:00] VITALS: BP 111/55
[2017-10-05] MEDS: ATORVASTATIN 10 MG TABLET PO SCH (21:06)
[2017-10-05] MEDS: TAMSULOSIN 0.4 MG CAP.SR.24H PO SCH (21:07)
[2017-10-06] MEDS: IV NS 0.9% 1,000 ML IV PRN (03:33)
[2017-10-06] MEDS: METOCLOPRAMIDE HCL 10 MG/2 ML VIAL IV SCH ×2 (05:15)
--- NOTE | 2017-10-06 06:43 | NUR ---
08-1MS/RN PATIENT IN BES, RESTING COMFORTABLY, ABLE TO SLEEP DURING THE NIGHT, COOPERATIVE TO CARE, REQUIRING REORIENTATION. SKIN WARM TO TOUCH, IV ON RIGHT HAND INTACT, DENIES PAIN, NO GUARDING AND NO GRIMACE.WILL ENDORSE TO AM RN FOR ZITA.
[2017-10-06 06:46] LABS: BASOPHILS % (AUTO) 0.4 % (0.0-2.0); EOSINOPHILS # (AUTO) 0.3 /CMM (0.0-0.7); HEMATOCRIT 37 % (39-51); HEMOGLOBIN 12.7 g/dL (13.5-17.5); LYMPHOCYTES # (AUTO) 2.4 /CMM (0.8-4.8); LYMPHOCYTES % (AUTO) 33.9 % (20.0-44.0); MEAN CORPUSCULAR HEMOGLOBIN 31 PG (26.0-33.0); MEAN CORPUSCULAR HGB CONC 34 g/dl (31.0-36.0); MEAN CORPUSCULAR VOLUME 92 fL (80-96); MONOCYTES # (AUTO) 0.5 /CMM (0.1-1.30); MONOCYTES % (AUTO) 6.8 % (2.0-12.0); NEUTROPHILS # (AUTO) 3.9 /CMM (1.8-8.9); NEUTROPHILS % (AUTO) 54.9 % (43.0-81.0); PLATELET COUNT (AUTO) 233 /CMM (150-450); RDW COEFFICIENT OF VARIATION 14.6 (11.5-15.0); RED BLOOD CELL COUNT(AUTO) 4.05 MIL/uL (4.5-6.0); WHITE BLOOD COUNT (AUTO) 7.1 K/uL (4.3-11.0)
[2017-10-06 06:50] LABS: TROPONIN I 0.033 ng/mL (0.00-0.056)
[2017-10-06 07:00] LABS: ALANINE AMINOTRANSFERASE 23 U/L (12-78); ALBUMIN 2.7 g/dL (3.4-5.0); ALKALINE PHOSPHATASE 94 U/L (46-116); ASPARTATE AMINOTRANSFERASE 22 U/L (15-37); BILIRUBIN,TOTAL 0.5 mg/dL (0.2-1.0); CARBON DIOXIDE 24 mmol/L (21-32); CHLORIDE 109 mmol/L (98-107); CREATININE 1.2 mg/dL (0.6-1.3); GLUCOSE 87 mg/dL (74-106); MAGNESIUM 2.1 mg/dL (1.8-2.4); PHOSPHORUS 3.6 mg/dL (2.5-4.9); POTASSIUM 4.2 mmol/L (3.5-5.1); SODIUM SERUM 142 mmol/L (136-145); TOTAL PROTEIN, SERUM 6.5 g/dL (6.4-8.2); UREA NITROGEN, BLOOD 19 mg/dL (7-18)
--- NOTE | 2017-10-06 07:19 | NUR ---
RN OPENING NOTES RECEIVED PATIENT IN BED AWAKE, A/O X 1-2,CONFUSED. NO ACUTE DISTRESS, NO SOB NOTED. NO/S/S OF PAIN OR DISCOMFORT. IV ACCESS PATENT AND INTACT. SAFETY MEASURES IN PLACE. SIDERAILS UPX2, BED ALARM ON, CALL LIGHT WITHIN REACH. WILL CONTINUE TO MONITOR ACCORDINGLY.
[2017-10-06 07:39] LABS: THYROID STIMULATING HORMONE 2.224 uIU/mL (0.358-3.74)
[2017-10-06 08:00] VITALS: BP 101/52
[2017-10-06 09:00] VITALS: BP 101/52
[2017-10-06] MEDS: ISOSORBIDE MONONITRATE (30MG) 30 MG TAB.SR.24H PO SCH (09:00)
[2017-10-06] MEDS: BENAZEPRIL HCL 20 MG TABLET PO SCH (09:00)
[2017-10-06] MEDS: MULTIVIT, IRON, MIN NO. 8, FA 1 TAB PO SCH (09:01)
[2017-10-06] MEDS: ASPIRIN 81 MG TAB.CHEW PO SCH (09:02)
[2017-10-06] MEDS: ACIDOPHILUS/BULGARICUS 1 EACH TAB.CHEW PO SCH (09:02)
[2017-10-06] MEDS: FAMOTIDINE (20 MG) 20 MG TABLET PO SCH (09:03)
[2017-10-06] MEDS: CLOPIDOGREL BISULFATE 75 MG TABLET PO SCH (09:03)
[2017-10-06] MEDS: MEMANTINE HCL 5 MG TABLET PO SCH (09:03)
[2017-10-06] MEDS: LEVETIRACETAM (250 MG) 250 MG TABLET PO SCH (09:04)
[2017-10-06] MEDS: CALCIUM CARB 250MG /VITAMIN D 1 UDTAB PO SCH (09:04)
[2017-10-06] MEDS: PROSOURCE / PROSTAT (PYXIS) 30 ML UDC PO SCH (09:26)
--- NOTE | 2017-10-06 14:00 | NUR ---
HEMMING AND TACKING MACHINE OPERATOR NOTES DISCHARGE PATIENT IN STABLE CONDITION, PICKED UO BY 2 TIMING MACHINE OPERATOR. DISCHARGE PAPERWORK GIVEN TO TIMING MACHINE OPERATOR. ALL BELONGINGS RETURNED, FORMED SIGNED BY DAUGHTER. DISCHARGE INSTRUCTIONS GIVEN TO DAUGHTER AND SNF HERIBERTO NORRIS. REPORT GIVEN TO MYRNA LOUIS FROM [facility]. D/C IV, APPLIED PRESSURE, NO BLEEDING, NO COMPLICATIONS NOTED. REMOVED ARM BAND.
[2017-10-06] MEDS ORDERED: Ranolazine (Ranexa) 1,000 MG PO SCH (17:00)
== END 2017-10-06 14:15 | DRG 247 ==
LOC: ER 12:45 → TELE 15:02 → MED 10-05 10:48
PROVIDERS: ADMIT Nurse Practitioner Acute Care; ATTEND Nurse Practitioner Acute Care
DX: K56.7 Ileus, unspecified (principal); F03.90 Unspecified dementia, unspecified severity, without behavioral disturbance, psychotic disturbance, mood disturbance, and anxiety; I11.0 Hypertensive heart disease with heart failure; I50.30 Unspecified diastolic (congestive) heart failure; G40.909 Epilepsy, unspecified, not intractable, without status epilepticus; I25.2 Old myocardial infarction; E44.1 Mild protein-calorie malnutrition; Z88.8 Allergy status to other drugs, medicaments and biological substances; Z79.82 Long term (current) use of aspirin; Z79.899 Other long term (current) drug therapy; Z96.649 Presence of unspecified artificial hip joint; Z79.01 Long term (current) use of anticoagulants; Z95.5 Presence of coronary angioplasty implant and graft; Z87.891 Personal history of nicotine dependence; Z82.49 Family history of ischemic heart disease and other diseases of the circulatory system; N40.0 Benign prostatic hyperplasia without lower urinary tract symptoms; H40.9 Unspecified glaucoma; E04.2 Nontoxic multinodular goiter; H91.90 Unspecified hearing loss, unspecified ear; I25.10 Atherosclerotic heart disease of native coronary artery without angina pectoris
CPT/HCPCS: 36415; 71045-TC; 74018; 74150-TC; 80048-TC; 80053-TC; 80076-TC; 83735-TC; 84100-TC; 84439-TC; 84443-TC; 84484-TC; 85025-TC; 85730-TC; 87081-TC; A4606; J2765; J7030; Z7610